=== PATIENT | female | born 1995 ===

== ENCOUNTER 2023-01-12 08:17 | Outpatient (CLI) | payer OTHER | END 2023-01-12 09:27 | disposition home or self-care (01) | LOC: PRENATAL 08:17 | PROVIDERS: ATTEND Obstetrics & Gynecology Maternal & Fetal Medicine | DX: O35.9XX0 Maternal care for (suspected) fetal abnormality and damage, unspecified, not applicable or unspecified (principal); O99.210 Obesity complicating pregnancy, unspecified trimester; Z3A.12 12 weeks gestation of pregnancy ==

== ENCOUNTER 2023-02-01 01:15 | Emergency (ER) | payer OTHER ==
[~2023-02-01] VITALS: Ht 157.5 cm; Wt 128.8 kg
[2023-02-01] MEDS ORDERED: PRENATABS RX T1 EACH (01:28)
[2023-02-01] MEDS ORDERED: MACRODANTIN100 M1 PO (06:00)
== END 2023-02-01 06:04 ==
LOC: ER 01:15
DX: O26.899 Other specified pregnancy related conditions, unspecified trimester (principal); Z3A.14 14 weeks gestation of pregnancy; R10.2 Pelvic and perineal pain

== ENCOUNTER 2023-03-14 07:58 | Outpatient (CLI) | payer OTHER ==
[~2023-03-14 07:58] MED LIST: MACRODANTIN100 M1 PO; PRENATABS RX T1 EACH
== END 2023-03-14 09:18 | disposition home or self-care (01) ==
LOC: PRENATAL 07:58
PROVIDERS: ATTEND Obstetrics & Gynecology Maternal & Fetal Medicine
DX: O35.9XX0 Maternal care for (suspected) fetal abnormality and damage, unspecified, not applicable or unspecified (principal); O35.3XX0 Maternal care for (suspected) damage to fetus from viral disease in mother, not applicable or unspecified; O09.219 Supervision of pregnancy with history of pre-term labor, unspecified trimester; O99.210 Obesity complicating pregnancy, unspecified trimester; Z3A.20 20 weeks gestation of pregnancy

== ENCOUNTER 2023-04-26 13:27 | Outpatient (CLI) | payer OTHER | END 2023-04-26 16:52 | disposition home or self-care (01) | LOC: PRENATAL 13:27 | PROVIDERS: ATTEND Obstetrics & Gynecology Maternal & Fetal Medicine | DX: O26.849 Uterine size-date discrepancy, unspecified trimester (principal); O99.210 Obesity complicating pregnancy, unspecified trimester; Z3A.26 26 weeks gestation of pregnancy ==

== ENCOUNTER 2023-06-05 14:57 | Outpatient (CLI) | payer OTHER | END 2023-06-05 17:20 | disposition home or self-care (01) | LOC: PRENATAL 14:57 | PROVIDERS: ATTEND Obstetrics & Gynecology Maternal & Fetal Medicine | DX: O26.849 Uterine size-date discrepancy, unspecified trimester (principal); O36.8199 Decreased fetal movements, unspecified trimester, other fetus; O09.219 Supervision of pregnancy with history of pre-term labor, unspecified trimester; Z3A.32 32 weeks gestation of pregnancy ==